=== PATIENT | male | born 1960 | race Caucasian/White ===

== ENCOUNTER 2017-05-09 06:55 | Day surgery (SDC) | payer MEDICAID ==
[~2017-05-09] VITALS: Ht 185.4 cm; Wt 106.5 kg
[2017-05-09] VITALS (12 sets, daily range): BP systolic 118–147; BP diastolic 78–99
[2017-05-09] MEDS ORDERED: normal saline 1000ml 1,000 ML IV SCH ×2 (07:15→08:51)
[2017-05-09] MEDS ORDERED: DILT240C90 PO (07:24)
[2017-05-09] MEDS ORDERED: OMEP40CA37 PO (07:25)
[2017-05-09] MEDS ORDERED: ESCI20TA PO (07:26)
[2017-05-09] MEDS ORDERED: LORA1TAB PO (07:26)
[2017-05-09] MEDS ORDERED: ONDA4TAB6 PO (07:27)
[2017-05-09] MEDS ORDERED: MELO15TA13 PO (07:28)
[2017-05-09] MEDS ORDERED: CYCL-1 PO (07:30)
[2017-05-09] MEDS ORDERED: PREG150C PO (07:31)
[2017-05-09] MEDS ORDERED: NALO25TA PO (07:32)
[2017-05-09] MEDS ORDERED: PER10325T PO (07:39)
[2017-05-09] MEDS ORDERED: MORP60CP14 PO (07:41)
[2017-05-09] MEDS ORDERED: ASPI81TA52 PO (07:41)
[2017-05-09] MEDS ORDERED: MULT1TAB74 PO (07:43)
[2017-05-09] MEDS ORDERED: ASCO500C15 PO (07:44)
[2017-05-09] MEDS ORDERED: CYAN-19 PO (07:45)
[2017-05-09] MEDS ORDERED: IRON-12 PO (07:46)
[2017-05-09] MEDS ORDERED: CANNIBUS PO (07:48)
[2017-05-09] MEDS ORDERED: fentaNYL/PF 50MCG/1 ML 2ML syringe IV PRN (08:50)
[2017-05-09] MEDS ORDERED: LIDOcaine 1%/PF (10mg/ml) 5ml vial SQ ONE (08:50)
[2017-05-09] MEDS ORDERED: midazolam 2 mg/2 ml injection IV PRN (08:50)
[2017-05-09] MEDS ORDERED: midazolam 2 mg/2 ml injection ONE (09:02)
[2017-05-09] MEDS ORDERED: fentaNYL/PF 50MCG/1 ML 2ML syringe ONE (09:03)
[2017-05-09] MEDS ORDERED: pneumococcal 23-VAL P-sac vacc 25 mcg/0.5ml vial IMVAC ONE (10:00)
== END 2017-05-09 11:00 | disposition home or self-care (01) ==
LOC: SSTAY O 06:55
PROVIDERS: ATTEND Radiology Diagnostic Radiology
DX: M46.46 Discitis, unspecified, lumbar region (principal); I10 Essential (primary) hypertension; F41.9 Anxiety disorder, unspecified; Z98.890 Other specified postprocedural states; Z88.0 Allergy status to penicillin; Z88.2 Allergy status to sulfonamides
CPT/HCPCS: 20225; 77012; 87070; 87075; 87102; J2250; J3010; J7030; 99152; 99153